=== PATIENT | female | born 1945 | race Caucasian/White ===

== ENCOUNTER 2022-09-21 17:32 | Outpatient (CLI) | payer MEDICARE | END 2022-09-21 17:33 | disposition home or self-care (01) | LOC: NAV RAD 17:32 | PROVIDERS: ATTEND Family Medicine | DX: M71.9 Bursopathy, unspecified (principal); M25.462 Effusion, left knee ==

== ENCOUNTER 2022-10-26 16:20 | Outpatient (CLI) | payer MEDICARE | END 2022-10-26 16:21 | disposition home or self-care (01) | LOC: NAV RAD 16:20 | PROVIDERS: ATTEND Family Medicine | DX: R10.2 Pelvic and perineal pain (principal) ==

== ENCOUNTER 2022-12-18 12:09 | Outpatient (CLI) | payer MEDICARE | END 2022-12-18 12:10 | disposition home or self-care (01) | LOC: NAV RAD 12:09 | PROVIDERS: ATTEND Family Medicine | DX: M71.9 Bursopathy, unspecified (principal) ==

== ENCOUNTER 2023-03-05 09:56 | Outpatient (CLI) | payer MEDICARE | END 2023-03-05 09:57 | disposition home or self-care (01) | LOC: NAV CT 09:56 | PROVIDERS: ATTEND Family Medicine | DX: N30.90 Cystitis, unspecified without hematuria (principal); R10.9 Unspecified abdominal pain; N83.9 Noninflammatory disorder of ovary, fallopian tube and broad ligament, unspecified | CPT/HCPCS: 74176 ==